=== PATIENT | female | born 1975 | race Caucasian/White ===

== ENCOUNTER 2017-09-09 20:34 | Emergency (ER) | payer MEDICAID ==
[~2017-09-09 20:34] MED LIST: AMLO2.5T PO; ATEN50TA PO; IBUP600T26 PO; LISI-515 PO; LISI40TA PO; MELO15TA20 PO; QC A PO; [UNRECOGNIZED DRUG - SUPPLY]
[2017-09-09 20:45] VITALS: BP 186/82; PULSE 100; RESP 18; TEMP 98.2; O2SAT 99
--- NOTE | 2017-09-09 22:38 | PD ---
HPI Chief Complaint: Bite or Sting Time Seen by Provider: 22:32 Travel History International Travel<30 days: No Contact w/Intl Traveler<30days: No Traveled to known affect area: No History of Present Illness HPI 42-year-old female presents for evaluation after dog bite. She reports that prior to arrival her own personal pet dog bit her on the face. She has mild pain on the left cheek associated with the wound. Pain is worse with palpation. Denies any other injuries. Her last tetanus vaccination was 6 months ago. She has no other complaints at this time. [facility] Past Medical History Hypertension: Yes ?: Not LMP: 09/03/17 Tubal Ligation: Yes Past Surgical History Tonsillectomy: Yes Social History Alcohol Use: No Tobacco Use: No Substance Use: No Allergies-Medications (Allergen,Severity, Reaction): Coded Allergies: No Known Allergies (Unverified , 04/21/17) Reported Meds & Prescriptions Reported Meds & Active Scripts Active Augmentin (Amoxicillin-Clavulanate) 875-125 Mg Tab 1 Tab PO BID Amlodipine (Amlodipine Besylate) 2.5 Mg Tab 2.5 Mg PO DAILY Lisinopril 40 Mg Tab 40 Mg PO DAILY Lisinopril 20 Mg Tab 40 Mg PO DAILY Atenolol 50 Mg Tab 50 Mg PO BID Qc Arthritis Pain Relief ER 8 HR (Acetaminophen) 650 Mg Tab 650 Mg PO Q8HR PRN Meloxicam 15 Mg Tab 15 Mg PO DAILY [heel insert] Ibuprofen 600 Mg Tab 600 Mg PO TID PRN Review of Systems Skin: Positive Other (Positive for dog bite, pain) Physical Exam Narrative GENERAL: Well-developed well-nourished female no acute distress SKIN: Warm and dry. There are 2 superficial linear wounds noted to the left cheek. Tender to palpation. No bleeding currently. HEAD: Atraumatic. Normocephalic. EYES: Pupils equal and round. No scleral icterus. No injection or drainage. ENT: No nasal bleeding or discharge. Mucous membranes pink and moist. Tender to palpation over left maxilla with associated wounds. NECK: Trachea midline. No JVD. CARDIOVASCULAR: Regular rate and rhythm. No murmur appreciated. RESPIRATORY: No accessory muscle use. Clear to auscultation. Breath sounds equal bilaterally. MUSCULOSKELETAL: No obvious deformities. NEUROLOGICAL: Awake and alert. No obvious cranial nerve deficits. Motor grossly within normal limits. Normal speech. Data Data Last Documented VS Vital Signs Date Time Temp Pulse Resp B/P (MAP) Pulse Ox O2 Delivery O2 Flow Rate FiO2 09/09/17 20:45 98.2 100 18 186/82 (116) [address] Facial Bones W/O Iv Cont (09/09/17 ) Wound Care (09/09/17 22:32) Amoxicil-Clavulanate (Augmentin) (09/09/17 23:30) Ed Discharge Order (09/09/17 23:23) MDM Medical Decision Making Medical Screen Exam Complete: Yes Emergency Medical Condition: Yes Medical Record Reviewed: Yes Differential Diagnosis Dog bite, puncture wound, laceration, maxilla fracture Narrative Course The wounds are superficial and well healed by secondary intention. The wounds will be thoroughly irrigated and local wound care provided. Augmentin administered. CT of the facial bones will be obtained. CT of the facial bones reveals no acute bony abnormalities. The patient is stable for discharge. Diagnosis Primary Impression: Dog bite of face Additional Instructions: Medication as prescribed. Wash the wounds daily with soap and water and apply antibiotic cream. Return for any evidence of infection such as large area of increased redness, pus coming from the wound, fevers. Med/Other Pt SpecificInfo: Prescription(s) given, Wound Care Scripts Amoxicillin-Clavulanate (Augmentin) 875-125 Mg Tab 1 TAB PO BID for Infection, #10 TAB 0 Refills Prov: Shanda Maher MD 09/09/17 Disposition: 01 DISCHARGE HOME Condition: Stable Christiano Keys Sep 09, 2017 22:38
--- NOTE | 2017-09-09 23:18 | RADRPT ---
EXAM DATE/TIME: 09/09/2017 22:49 [place] COMPARISON: No previous studies available for comparison. INDICATIONS : Dog bite to left side of face. RADIATION DOSE: 50.36 CTDIvol (mGy) MEDICAL HISTORY : None SURGICAL HISTORY : Tubal ligation. ENCOUNTER: Initial ACUITY: 1 day PAIN SCORE: 6/10 LOCATION: Left facial TECHNIQUE: Volumetric scanning of the facial bones was performed. Using automated exposure control and adjustme nt of the mA and/or kV according to patient size, radiation dose was kept as low as reasonably achiev able to obtain optimal diagnostic quality images. DICOM format image data is available electronicall y for review and comparison. FINDINGS: ORBITS: The orbital structures are intact. The retroconal structures have a normal configuration. No radiop aque foreign bodies are seen. The lenses are normally located. NASAL BONE: The nasal bones and maxillary spine are intact. ZYGOMATIC ARCHES: Symmetric without evidence of fracture. SINUSES: The maxillary, ethmoid, and frontal sinuses are clear. No air-fluid levels seen. NASAL CAVITY: The nasal septum is intact and midline. The lacrimal ducts are intact. SOFT TISSUES: No radiopaque foreign bodies seen. No focal soft-tissue swelling is seen. There is mild subcutaneous edema in anterior to the left maxilla. INTRACRANIAL: No acute intracranial abnormality is seen. OTHER: The mandible and pterygoid plates are intact. There is extensive artifact from the dental hardware. CONCLUSION: No fracture is identified. There is mild subcutaneous edema anterior to the left maxilla. Jp Castrejon MD on September 09, 2017 at 23:14 Board Certified Radiologist. This report was verified electronically.
[2017-09-09] MEDS ORDERED: AUGM875T3 PO (23:24)
[2017-09-09 23:30] VITALS: BP 171/77; PULSE 88; RESP 18; O2SAT 99
[2017-09-09] MEDS ORDERED: AMOXICILLIN/CLAVULANATE K 875 MG TAB PO ONE (23:30)
== END 2017-09-09 23:51 | disposition home or self-care (01) ==
LOC: NEPK 20:34
DX: S01.452A Open bite of left cheek and temporomandibular area, initial encounter (principal); I10 Essential (primary) hypertension; W54.0XXA Bitten by dog, initial encounter
CPT/HCPCS: 70486

== ENCOUNTER 2018-08-20 13:51 | Observation (INO) ==
[2018-08-20] MEDS ORDERED: hydrALAZINE HCl Inj 20 MG/ML Vial IV.PUSH ONE ×2 (16:17→17:28)
--- NOTE | 2018-08-20 16:31 | XR ---
EXAM DATE: 08/20/2018 4:27 PM EST AGE/SEX: 43 years / Female INDICATIONS: Chest discomfort. Elevated blood pressure. CLINICAL DATA: This is the patient's initial encounter. Patient reports that signs and symptoms have been present for 1 day and indicates a pain score of 0/10. MEDICAL/SURGICAL HISTORY: None. None. COMPARISON: [facility] [place], CHEST 1V SINGLE AP, 07/13/2018. . FINDINGS: The lungs are clear without infiltrate, nodule, or mass. There is no appreciable pleural e ffusion for technique. Heart and mediastinum are unremarkable. CONCLUSION: No acute cardiopulmonary disease. Electronically signed by: Chase Alston MD Board Certified Radiologist 08/20/2018 4:29 PM EST
[2018-08-20] MEDS ORDERED: Acetaminophen 325 MG Tablet PO ONE (16:57)
[2018-08-20 17:00] LABS: Baso % (Auto) 0.4 % (0.0-2.0); Eos # (Auto) 0.1 th/mm3 (0.0-0.4); Eos % (Auto) 1.2 % (0.0-4.0); Hematocrit 39.3 % (35.0-46.0); Hemoglobin 12.7 gm/dL (11.6-15.3); Lymph # (Auto) 2.2 th/mm3 (1.0-4.8); Lymph % (Auto) 36.7 % (9.0-44.0); Mean Corpuscular HGB Conc 32.4 % (32.0-36.0); Mean Corpuscular Hemoglobin 27.3 pg (27.0-34.0); Mean Corpuscular Volume 84.1 fL (80.0-100.0); Mean Platelet Volume 10.1 fL (7.0-11.0); Mono # (Auto) 0.6 th/mm3 (0.0-0.9); Mono % (Auto) 9.6 % (0.0-8.0); Neut # (Auto) 3.1 th/mm3 (1.8-7.7); Neut % (Auto) 52.1 % (16.0-70.0); Platelet Count 218 th/mm3 (150-450); Red Blood Count 4.67 mil/mm3 (4.00-5.30); Red Cell Distribution Width 17.7 % (11.6-17.2); White Blood Count 6.1 th/mm3 (4.0-11.0)
--- NOTE | 2018-08-20 17:09 | CT ---
EXAM DATE: 08/20/2018 5:06 PM EST AGE/SEX: 43 years / Female INDICATIONS: Headache and blurred vision CLINICAL DATA: This is the patient's initial encounter. Patient reports that signs and symptoms have been present for 1 day and indicates a pain score of 10/10. MEDICAL/SURGICAL HISTORY: Hypertension. None. RADIATION DOSE: 38.08 CTDI (mGy) COMPARISON: No prior exams available for comparison. TECHNIQUE: CT of the head without contrast. Using automated exposure control and adjustment of the mA and/or kV according to patient size, radiation dose was kept as low as reasonably achievable to ob tain optimal diagnostic quality images. DICOM format image data is available electronically for revi ew and comparison. FINDINGS: Cerebrum: The ventricles are normal for age. No evidence of midline shift, mass lesion, hemorrhage or acute infarction. No extraaxial fluid collections are seen. Posterior Fossa: The cerebellum and brainstem are intact. The 4th ventricle is midline. The cerebe llopontine angle is unremarkable. Extracranial: The visualized portion of the orbits is intact. Skull: The calvaria is intact. No evidence of skull fracture. CONCLUSION: 1. Negative noncontrast CT brain. . . Electronically signed by: Magdi Pedroza MD Board Certified Radiologist 08/20/2018 5:07 PM EST
[2018-08-20 17:13] LABS: Alanine Aminotransferase 18 U/L (10-53); Albumin 3.3 g/dL (3.4-5.0); Anion Gap 4 meq/L (5-15); Aspartate Aminotransferase 10 U/L (15-37); Blood Urea Nitrogen 15 mg/dL (7-18); Calcium 9.3 mg/dL (8.5-10.1); Carbon Dioxide 25.2 meq/L (21.0-32.0); Chloride 112 meq/L (98-107); Glomerular Filtration Rate 66 mL/min (>89); Glucose,Random 100 mg/dL (74-106); Potassium 4.5 meq/L (3.5-5.1); Sodium 141 meq/L (136-145)
[2018-08-20 17:17] LABS: Alkaline Phosphatase 78 U/L (45-117); Total Protein 7.3 g/dL (6.4-8.2)
[2018-08-20 17:31] LABS: Creatine Kinase 36 U/L (26-192)
--- NOTE | 2018-08-20 18:25 | ED ---
HPI General Chief complaint: Hypertension Stated complaint: headache Time Seen by Provider: 08/20/18 16:03 Source: patient Mode of arrival: ambulatory Limitations: no limitations History of Present Illness HPI narrative: 43-year-old female who presents to the ED for evaluation of headache and hypertension. Per patient she was told by her doctor to come here yesterday for evaluation of this. Patient states that her headache is 4 out of 10 and feels like a pressure. Per patient she is had this on and off for the past couple of weeks. She went there to get evaluated for high blood pressure. She has had high blood pressure since age 18. She takes metoprolol 100 mg twice a day as well as lisinopril 40 mg daily. She states that she is compliant with his medications and when she was seen she had elevated blood pressure in the 170 systolic. Patient was given the paperwork from the visit and the paperwork states that the patient is to be admitted for hypertensive urgency as she will need a workup including cardiac workup for further evaluation. Patient currently symptom she has is a headache. She denies any chest pain or shortness of breath but she does state that about 2 weeks ago she had an episode of chest pain with shortness of breath. This went away on its own and she never got checked for this. She denies any recent travel. No nausea or vomiting. No abdominal pain. No other medical issues. Related Data Home Medications Medication Instructions Recorded Confirmed metoprolol tartrate 50 mg PO BID 07/13/18 08/20/18 Previous Rx's Medication Instructions Recorded albuterol sulfate [Ventolin HFA] 2 inh INHALATION Q4-6H PRN #18 g 07/13/18 nifedipine 30 mg PO DAILY 30 Days #30 tab 08/21/18 Allergies Allergy/AdvReac Type Severity Reaction Status Date / Time No Known Allergies Allergy none Uncoded 07/13/18 14:48 Review of Systems ROS: all other systems reviewed are negative [facility] Medical History Medical History Hypertension (Acute) Surgical History Surgical History No history of previous surgery (Acute) Social History Social History Substance History: No History of Abuse Second Hand Smoke Exposure: No Smoking Status: Never smoker How Often Do You Have a Drink Containing Alcohol: Never Recent Travel in [facility] within the Last 8 Weeks: No Recent Out of Country Travel within the Last 8 Weeks: No Immunization History Tetanus Immunization: Unsure Exam Narrative Exam Narrative: GENERAL: Well-appearing in no distress. SKIN: Focused skin assessment warm/dry. HEAD: Atraumatic. Normocephalic. EYES: Pupils equal and round. No scleral icterus. No injection or drainage. ENT: No nasal bleeding or discharge. Mucous membranes pink and moist. NECK: Trachea midline. No JVD. CARDIOVASCULAR: Regular rate and rhythm. No murmur appreciated. RESPIRATORY: No accessory muscle use. Clear to auscultation. Breath sounds equal bilaterally. GASTROINTESTINAL: Abdomen soft, non-tender, nondistended. Hepatic and splenic margins not palpable. MUSCULOSKELETAL: No obvious deformities. No clubbing. No cyanosis. No edema. Full range of motion of the upper and lower extremities bilaterally. 2+ pulses bilaterally. NEUROLOGICAL: Awake and alert. No obvious cranial nerve deficits. Motor grossly within normal limits. Normal speech. PSYCHIATRIC: Appropriate mood and affect; insight and judgment normal. Course Initial Documented Vital Signs Temperature 97.6 F 08/20/18 13:58 Pulse Rate 52 L 08/20/18 13:58 Respiratory Rate 18 08/20/18 13:58 Blood Pressure 207/104 H 08/20/18 13:58 Pulse Oximetry 98 08/20/18 13:58 Last Documented Vital Signs Temperature 98.2 F 08/21/18 11:48 Pulse Rate 83 08/21/18 11:48 Respiratory Rate 16 08/21/18 11:48 Blood Pressure 129/62 08/21/18 11:48 Pulse Oximetry 97 08/21/18 11:48 Medical Decision Making KAMERON Attestation KAMERON supervised visit: Yes Attestation: I, Dr. Camejo, have reviewed the advance practice practitioner's documentation and am in agreement, met with the patient face to face, made the diagnosis, and the medical decision making was done by me. See his note for further details. This is a 43-year-old female with history of hypertension who presents to the emergency department as directed by her primary care physician Dr. Villalpando for admission for hypertensive urgency/emergency. Patient was evaluated by him yesterday, however she had to attend for her children and was unable to present to the emergency department until today. Patient complained of a headache as well as intermittent chest pain to her primary care physician. On arrival the patient's blood pressure is elevated at 230/110 and improved to 166/70 after 10 milligrams of IV hydralazine. She takes lisinopril and metoprolol for her blood pressure. On my assessment she is sitting comfortably eating, is in no apparent distress, has no focal deficits. Basic labs are within normal limits and there are no signs of end organ damage. I have read the office note from the patient's primary care physician from her visit yesterday, and according to his note he strongly believes that the patient should be admitted for further cardiac and possible neuro workup, therefore she will be admitted. MDM Narrative Medical decision making narrative: 43-year-old female who presents to the ED for evaluation of hypertensive urgency/emergency. Patient was properly examined and was found to have signs and symptoms with signs and symptoms consistent with what appears to be hypertensive urgency versus emergency. Labs and imaging were ordered. Labs and imaging were essentially unremarkable. She was given hydralazine with some improvement of the blood pressure. I will improve the headache. Neurological deficits. My attending spoke with Dr. Abdi who agreed to admission for further evaluation and treatment. Patient was admitted as his primary care doctor was very concerned about the patient's blood pressure and was concerned that the patient was having hypertensive emergency. Per the notes from the primary care doctor he wanted the patient to have a cardiac workup and better evaluation of the blood pressure. Medical Screen Exam Complete: Yes Emergency Medical Condition: Yes Medical Records Medical records reviewed: Yes I reviewed the patient's medical records. Lab Data Lab results reviewed: Yes I reviewed the patient's lab results. Result diagrams: 08/21/18 07:18 08/21/18 07:18 Lab Results 08/20/18 08/20/18 08/20/18 Range/Units 16:40 16:40 22:30 WBC 6.1 (4.0-11.0) th/mm3 RBC 4.67 (4.00-5.30) mil/mm3 Hgb 12.7 (11.6-15.3) gm/dL Hct 39.3 (35.0-46.0) % MCV 84.1 (80.0-100.0) fL MCH 27.3 (27.0-34.0) pg MCHC 32.4 (32.0-36.0) % RDW 17.7 H (11.6-17.2) % Plt Count 218 (150-450) th/mm3 MPV 10.1 (7.0-11.0) fL Neut % (Auto) 52.1 (16.0-70.0) % Lymph % (Auto) 36.7 (9.0-44.0) % Antelope % (Auto) 9.6 H (0.0-8.0) % Eos % (Auto) 1.2 (0.0-4.0) % Baso % (Auto) 0.4 (0.0-2.0) % Neut # (Auto) 3.1 (1.8-7.7) th/mm3 Lymph # (Auto) 2.2 (1.0-4.8) th/mm3 Antelope # (Auto) 0.6 (0.0-0.9) th/mm3 Eos # (Auto) 0.1 (0.0-0.4) th/mm3 Baso # (Auto) 0.0 (0.0-0.2) th/mm3 WBC Differential . Differential Comment Auto diff final Sodium 141 (136-145) meq/L Potassium 4.5 (3.5-5.1) meq/L Chloride 112 H (98-107) meq/L Carbon Dioxide 25.2 (21.0-32.0) meq/L Anion Gap 4 L (5-15) meq/L BUN 15 (7-18) mg/dL Creatinine 0.92 (0.50-1.00) mg/dL Estimated GFR 66 L (>89) mL/min Random Glucose 100 (74-106) mg/dL Calcium 9.3 (8.5-10.1) mg/dL Total Bilirubin 0.2 (0.2-1.0) mg/dL AST 10 L (15-37) U/L ALT 18 (10-53) U/L Alkaline Phosphatase 78 (45-117) U/L Total Creatine Kinase 36 (26-192) U/L Troponin I Less than 0.02 L (0.02-0.05) ng/mL Total Protein 7.3 (6.4-8.2) g/dL Albumin 3.3 L (3.4-5.0) g/dL Urine Color Yellow (Yellw/Straw) Urine Clarity Hazy H (Clear) Urine pH 6.0 (5.0-8.5) Ur Specific [place] 1.013 (1.002-1.035) Urine Protein Negative (Neg-Trace) mg/dL Urine Glucose (UA) Negative (Negative) mg/dL Urine Ketones Negative (Negative) mg/dL Urine Occult Blood Negative (Negative) Urine Nitrate Negative (Negative) Urine Bilirubin Negative (Negative) Urine Urobilinogen Less than 2 (Less than 2) mg/dL Ur Leukocyte Esterase Small H (Negative) Urine RBC 1 (0-3) /hpf Urine WBC 1 (0-5) /hpf Ur Squamous Epith Cells 8 (0-5) /hpf Urine Mucus Few H (Occasional) /lpf Micro UA Comment Culture not ind Ur Microscopic Review Not Reportable Urine Culture Comments Culture not ind 08/21/18 08/21/18 Range/Units 07:18 07:18 WBC 7.9 (4.0-11.0) th/mm3 RBC 4.70 (4.00-5.30) mil/mm3 Hgb 12.8 (11.6-15.3) gm/dL Hct 39.0 (35.0-46.0) % MCV 82.8 (80.0-100.0) fL MCH 27.3 (27.0-34.0) pg MCHC 33.0 (32.0-36.0) % RDW 17.8 H (11.6-17.2) % Plt Count 217 (150-450) th/mm3 MPV 9.9 (7.0-11.0) fL Neut % (Auto) 56.2 (16.0-70.0) % Lymph % (Auto) 33.9 (9.0-44.0) % Antelope % (Auto) 7.7 (0.0-8.0) % Eos % (Auto) 1.5 (0.0-4.0) % Baso % (Auto) 0.7 (0.0-2.0) % Neut # (Auto) 4.5 (1.8-7.7) th/mm3 Lymph # (Auto) 2.7 (1.0-4.8) th/mm3 Antelope # (Auto) 0.6 (0.0-0.9) th/mm3 Eos # (Auto) 0.1 (0.0-0.4) th/mm3 Baso # (Auto) 0.1 (0.0-0.2) th/mm3 WBC Differential . Differential Comment Auto diff final Sodium 140 (136-145) meq/L Potassium 3.8 (3.5-5.1) meq/L Chloride 110 H (98-107) meq/L Carbon Dioxide 22.6 (21.0-32.0) meq/L Anion Gap 7 (5-15) meq/L BUN 13 (7-18) mg/dL Creatinine 0.93 (0.50-1.00) mg/dL Estimated GFR 65 L (>89) mL/min Random Glucose 89 (74-106) mg/dL Calcium 9.0 (8.5-10.1) mg/dL Total Bilirubin (0.2-1.0) mg/dL AST (15-37) U/L ALT (10-53) U/L Alkaline Phosphatase (45-117) U/L Total Creatine Kinase (26-192) U/L Troponin I (0.02-0.05) ng/mL Total Protein (6.4-8.2) g/dL Albumin (3.4-5.0) g/dL Urine Color (Yellw/Straw) Urine Clarity (Clear) Urine pH (5.0-8.5) Ur Specific [place] (1.002-1.035) Urine Protein (Neg-Trace) mg/dL Urine Glucose (UA) (Negative) mg/dL Urine Ketones (Negative) mg/dL Urine Occult Blood (Negative) Urine Nitrate (Negative) Urine Bilirubin (Negative) Urine Urobilinogen (Less than 2) mg/dL Ur Leukocyte Esterase (Negative) Urine RBC (0-3) /hpf Urine WBC (0-5) /hpf Ur Squamous Epith Cells (0-5) /hpf Urine Mucus (Occasional) /lpf Micro UA Comment Ur Microscopic Review Urine Culture Comments Imaging Data Attestation: I personally reviewed and interpreted this imaging study as follows : Radiologist's impression: Chest X-Ray 08/20/18 16:16 CONCLUSION: No acute cardiopulmonary disease. Head CT 08/20/18 16:16 CONCLUSION: 1. Negative noncontrast CT brain. . . ECG Data Attestation: I personally reviewed and interpreted this ECG as follows: Interpretation: EKG shows sinus rhythm with no sign of acute ischemia and arrhythmia read by me and attending. Discharge Plan Discharge Disposition Patient Disposition: ED Admit(ED Internal Use Only) Discharge Condition Condition: Stable Discharge Order Discharge Orders: Discharge Order (Routine); Ordered 08/21/18 Ordered By: Malgorzata Ulrich ED Use Only Admit Order (Routine); Ordered 08/20/18 Ordered By: Freddie Jalloh Discharge Details Diagnosis: Hypertensive urgency Physicians Team ED Provider: Damien Camejo ED Midlevel Provider: Freddie Jalloh Primary Care Provider: Chelo Villalpando Attending Provider: Earnest Abdi Status ED Status: Left Department Discharge Information Discharge Date/Time: 08/20/18 20:54
--- NOTE | 2018-08-20 19:35 | ECG ---
Date Performed: 08/20/2018 Time Performed: 14:10:29 PTAGE: 43 years EKG: SINUS BRADYCARDIA WITH SINUS ARRHYTHMIA VOLTAGE CRITERIA FOR LVH MODERATE ST DEPRESSION ABN ORMAL ECG NO PREVIOUS TRACING DOCTOR: Beto Medrano Interpretating Date/Time 08/20/2018 19:33:06
[2018-08-20] MEDS ORDERED: Acetaminophen 325 MG Tablet PO PRN (20:11)
[2018-08-20] MEDS: Metoprolol Tartrate 50 MG Tablet PO SCH (21:20)
[2018-08-20] MEDS: Senna/Docusate Sodium 8.6/50 MG Tablet PO SCH (21:21)
[2018-08-20 23:54] LABS: Bilirubin,Urine Negative (Negative); Clarity,Urine Hazy (Clear); Color,Urine Yellow (Yellw/Straw); Glucose,Urine (UA) Negative (Negative); Leukocyte Esterase,Urine Small (Negative); Mucus,Urine Few /lpf (Occasional); Nitrite,Urine Negative (Negative); Specific Gravity,Urine 1.013 (1.002-1.035); Squamous Epithelial Cell,Urine 8 /hpf (0-5)
[2018-08-21] MEDS ORDERED: LORazepam 1 MG Tablet PO ONE (01:00)
[2018-08-21] MEDS ORDERED: Morphine Sulfate Inj 2 MG/ML Vial IV.PUSH ONE (01:00)
[2018-08-21] MEDS ORDERED: hydrALAZINE 25 MG Tablet PO ONE (01:00)
[2018-08-21] MEDS ORDERED: Ketorolac Inj 30 MG/ML (IVP) Vial IV.PUSH ONE (01:45)
[2018-08-21] MEDS ORDERED: Butalbital/APAP/Caff 50/325/40 MG Tablet PO ONE (02:00)
[2018-08-21 07:54] LABS: Baso # (Auto) 0.1 th/mm3 (0.0-0.2); Baso % (Auto) 0.7 % (0.0-2.0); Eos # (Auto) 0.1 th/mm3 (0.0-0.4); Eos % (Auto) 1.5 % (0.0-4.0); Hemoglobin 12.8 gm/dL (11.6-15.3); Lymph # (Auto) 2.7 th/mm3 (1.0-4.8); Lymph % (Auto) 33.9 % (9.0-44.0); Mean Corpuscular Hemoglobin 27.3 pg (27.0-34.0); Mean Corpuscular Volume 82.8 fL (80.0-100.0); Mean Platelet Volume 9.9 fL (7.0-11.0); Mono # (Auto) 0.6 th/mm3 (0.0-0.9); Mono % (Auto) 7.7 % (0.0-8.0); Neut # (Auto) 4.5 th/mm3 (1.8-7.7); Neut % (Auto) 56.2 % (16.0-70.0); Platelet Count 217 th/mm3 (150-450); Red Cell Distribution Width 17.8 % (11.6-17.2); White Blood Count 7.9 th/mm3 (4.0-11.0)
[2018-08-21 08:09] LABS: Carbon Dioxide 22.6 meq/L (21.0-32.0); Potassium 3.8 meq/L (3.5-5.1)
--- NOTE | 2018-08-21 09:06 | P.HPIM ---
History of Present Illness Primary Care Physician: Chelo Villalpando DO Chief Complaint: Headache and hypertension History of Present Illness: Ms Garnados is a 43-year-old female patient with past medical history which includes hypertension. Patient reports she had preeclapsia with her first at age 17 and since the she has had HTN. Patient reports she takes lisinopril 40 mg daily and metoprolol 50 mg twice a day for her blood pressure. She reports she is compliant with this medication although her blood pressure continues to be high. Patient reports that she saw [facility] August 19 for evaluation was instructed to come to the emergency department for further evaluation and treatment of her hypertension. Patient presented to the emergency department the evening of 08/21/18 with a blood pressure of 207/104 which went up to 230/108. Patient was also complains of pressure sensation and posterior headache, which she reports that she routinely gets when her BP is high. Patient denies changes in vision, speech, confusion or focal weakness. Patient also denies chest pain, shortness of breath, nausea, vomiting, diarrhea, constipation, fevers or chills. Past medical history: Hypertension Past surgical history: Patient denies prior surgeries Social history: Patient is a lifelong non-smoker denies ETOH use or illicit drug use Family medical history: Hypertension Medications and Allergies Allergies Allergy/AdvReac Type Severity Reaction Status Date / Time No Known Allergies Allergy none Uncoded 07/13/18 14:48 Home Medications Medication Instructions Recorded Confirmed Type lisinopril 40 mg PO DAILY 07/13/18 08/20/18 History metoprolol tartrate 50 mg PO BID 07/13/18 08/20/18 History Active Medications: Active Medications Acetaminophen (Tylenol) 650 mg PO Q4H PRN PRN Reason: Temp > 100.4 Al Hydroxide/Mg Hydroxide (Milk Of Magnsandra Liq) 30 ml PO Q12H PRN PRN Reason: Mild Constipation Albuterol (Duoneb Neb (Prn)) 1 ampul NEB Q6HR NEB PRN PRN Reason: SHORTNESS OF BREATH/WHEEZING Clonidine HCl (Catapres) 0.2 mg PO Q6H PRN PRN Reason: sbp above 160, Last Admin: 08/21/18 00:04 Dose: 0.2 mg Metoprolol Tartrate (Lopressor) 50 mg PO BID [facility] Last Admin: 08/20/18 21:20 Dose: 50 mg Nifedipine (Procardia Xl) 30 mg PO BID [facility] Last Admin: 08/20/18 21:20 Dose: 30 mg Ondansetron HCl (Zofran Inj) 4 mg IV.PUSH Q6H PRN PRN Reason: NAUSEA OR VOMITING Senna/Docusate Sodium (Alison-Colace) 1 tab PO BID [facility] Last Admin: 08/20/18 21:21 Dose: Not Given Sodium Chloride (Ns Flush) 2 ml IV.FLUSH UNSCH PRN PRN Reason: FLUSH AFTER USING IV ACCESS Last Admin: 08/20/18 17:34 Dose: 2 ml Sodium Chloride (Ns Flush) 2 ml IV.FLUSH BID [facility] Last Admin: 08/20/18 21:20 Dose: 2 ml Sodium Chloride (Ns Flush) 2 ml IV.FLUSH PRN PRN PRN Reason: FLUSH AFTER USING IV ACCESS Physical Exam Vital signs: Last Vital Signs Temp 97.7 F 08/21/18 07:15 Pulse 75 08/21/18 07:46 Resp 18 08/21/18 07:15 BP 134/70 08/21/18 07:15 Pulse Ox 94 L 08/21/18 07:15 Narrative: GENERAL: This is a well-nourished, well-developed patient, in no apparent distress. CARDIOVASCULAR: Regular rate and rhythm RESPIRATORY: Clear to auscultation. Breath sounds equal bilaterally. GASTROINTESTINAL: Abdomen soft, non-tender, nondistended. Normal active bowel sounds MUSCULOSKELETAL: Extremities without clubbing, cyanosis, or edema. NEURO: Alert & Oriented x4 to person, place, time, situation. Moves all ext x4 Results Labs CBC & Chem 7: 08/21/18 07:18 08/21/18 07:18 Caprini VTE Risk Assessment Caprini VTE Risk Assessment: No/Low Risk (score <= 1) Caprini Risk Assessment Model: Point Value = 1 Point Value = 2 Point Value = 3 Point Value = 5 Age 41-60 Minor surgery BMI > 25 kg/m2 Swollen legs Varicose veins or History of unexplained or recurrent spontaneous Oral contraceptives or hormone replacement Sepsis (< 1 month) Serious lung disease, including pneumonia (< 1 month) Abnormal pulmonary function Acute myocardial infarction Congestive heart failure (< 1 month) History of inflammatory bowel disease Medical patient at bed rest Age 61-74 Arthroscopic surgery Major open surgery (> 45 min) Laparoscopic surgery (> 45 min) Malignancy Confined to bed (> 72 hours) Immobilizing plaster cast Central venous access Age >= 75 History of VTE Family history of VTE Factor V Leiden Prothrombin [id number] Lupus anticoagulant Anticardiolipin antibodies Elevated serum homocysteine Heparin-induced thrombocytopenia Other congenital or acquired thrombophilia Stroke (< 1 month) Elective arthroplasty Hip, pelvis, or leg fracture Acute spinal cord injury (< 1 month) Prophylaxis Regimen: Total Risk Factor Score Risk Level Prophylaxis Regimen 0-1 Low Early ambulation 2 Moderate Order ONE of the following: *Sequential Compression Device (SCD) *Heparin 5000 units SQ BID 3-4 Higher Order ONE of the following medications: *Heparin 5000 units SQ TID *Enoxaparin/Lovenox 40 mg SQ daily (WT < 150 kg, CrCl > 30 mL/min) *Enoxaparin/Lovenox 30 mg SQ daily (WT < 150 kg, CrCl > 10-29 mL/min) *Enoxaparin/Lovenox 30 mg SQ BID (WT < 150 kg, CrCl > 30 mL/min) AND/OR *Sequential Compression Device (SCD) 5 or more Highest Order ONE of the following medications: *Heparin 5000 units SQ TID (Preferred with Epidurals) *Enoxaparin/Lovenox 40 mg SQ daily (WT < 150 kg, CrCl > 30 mL/min) *Enoxaparin/Lovenox 30 mg SQ daily (WT < 150 kg, CrCl > 10-29 mL/min) *Enoxaparin/Lovenox 30 mg SQ BID (WT < 150 kg, CrCl > 30 mL/min) AND *Sequential Compression Device (SCD) Assessment and Plan Plan Ms Granados is a 43-year-old female patient with past medical history which includes hypertension. Patient reports she had preeclapsia with her first at age 17 and since the she has had HTN. Patient reports she takes lisinopril 40 mg daily and metoprolol 50 mg twice a day for her blood pressure. She reports she is compliant with this medication although her blood pressure continues to be high. Patient reports that she saw [facility] August 19 for evaluation was instructed to come to the emergency department for further evaluation and treatment of her hypertension. Patient presented to the emergency department the evening of 08/21/18 with a blood pressure of 207/104 which went up to 230/108. Patient was also complains of pressure sensation and posterior headache, which she reports that she routinely gets when her BP is high. Patient denies changes in vision, speech, confusion or focal weakness. Patient also denies chest pain, shortness of breath, nausea, vomiting, diarrhea , constipation, fevers or chills. Hypertensive urgency - improving Patient was given hydralazine IV in the emergency department Patient was then started on nifedipine 30 mg twice daily and patient's home metoprolol 50 mg twice daily was continued Patient's blood pressure this morning 134/70 Patient denies headache at this time reports feeling much better Echocardiogram Normal left ventricular size. Wall thickness is measured at the upper limits of normal. The left ventricular systolic function is normal with an estimated ejection fraction in the range of 50-55%. No definite regional wall motion abnormalities are present. No valvular abnormalities Continuous cardiac monitoring EKG on admission SR rate 47 bpm LVH by voltage criteria DVT prophylaxis with SCDs Patient's headache resolved BP improved. DC home in stable condition on heart heathy diet with no acitive restrictions Patient to keep home BP log and follow up with PCP for further medication adjustment Patient reacted very well to Procardia will DC home on Procardia XL 30 mg daily continue metoprolol 50 mg PO BID DC lisinopril Patient to follow up with PCP in 1 week H&P: Quality VTE Deep Vein Thrombosis/Pulmonary Embolism Present on Admission: No
[2018-08-21] MEDS: Senna/Docusate Sodium 8.6/50 MG Tablet PO SCH (09:16)
[2018-08-21] MEDS: Metoprolol Tartrate 50 MG Tablet PO SCH (09:16)
[2018-08-21 11:49] VITALS: BP 129/62; PULSE 83; RESP 16; TEMP 98.2; O2SAT 97
--- NOTE | 2018-08-21 12:54 | ECHRPT ---
Indication: HYPERTENSIVE HEART CONCLUSIONS Normal left ventricular size. Wall thickness is measured at the upper limits of normal. The left ventricular systolic function is normal with an estimated ejection fraction in the range of 50-55%. No definite regional wall motion abnormalities are present. No valvular abnormalities. BP: / HR: Rhythm: Technical Quality: FINDINGS LEFT VENTRICLE Normal left ventricular size. Wall thickness is measured at the upper limits of normal. The left ventricular systolic function is normal with an estimated ejection fraction in the range of 50-55%. No definite regional wall motion abnormalities are present. RIGHT VENTRICLE Normal right ventricular size and systolic function. LEFT ATRIUM The left atrial size is normal. RIGHT ATRIUM The right atrial size is normal. ATRIAL SEPTUM Normal atrial septal thickness without atrial level shunting by limited color doppler interrogation. AORTA The aortic root and proximal ascending aorta are normal in size on limited imaging. MITRAL VALVE Structurally normal mitral valve. No mitral valve stenosis or regurgitation. AORTIC VALVE Trileaflet aortic valve. No aortic valve stenosis or regurgitation. TRICUSPID VALVE Structurally normal tricuspid valve. No tricuspid valve stenosis or regurgitation. PULMONARY VALVE The pulmonary valve is not well visualized. VESSELS The inferior vena cava is normal in size. PERICARDIUM No pericardial effusion. Stanton Brooks MD (Electronically Signed) Final Date:21 August 2018 12:53
== END 2018-08-21 15:24 | disposition home or self-care (01) ==
LOC: NEDA 13:51 → NEPE 13:51 → NEDA 20:54 → NEPGCP 20:56
PROVIDERS: ADMIT Hospitalist; ATTEND Hospitalist
DX: R07.89 Other chest pain; Z79.899 Other long term (current) drug therapy; I16.0 Hypertensive urgency
CPT/HCPCS: 70450; 71010; 71045; 80048; 80053; 81001; 82550; 84484; 85025; 90774; 90776; 90784; 93005; 93306; 96374; 96375; 96376; 99285; C8952; G0378; J0360; J1885; J2270